=== PATIENT | female | born 1960 ===

== ENCOUNTER 2020-09-17 11:15 | Inpatient (IN) | payer OTHER ==
[~2020-09-17] VITALS: Ht 160 cm; Wt 85.7 kg
[~2020-09-17 11:15] MED LIST: IBUPROFEN800 MG PO; SEPTRA DS TABLE1 TAB PO
[2020-10-03] MEDS ORDERED: ALTACE5 MG PO (15:49)
[2020-10-03] MEDS ORDERED: METFORMIN HCL1000 M2 PO (15:49)
[2020-10-03] MEDS ORDERED: [UNRECOGNIZED DRUG - OTHER] (15:51)
[2020-10-03] MEDS ORDERED: LIPITOR40 MG PO (15:52)
[2020-10-03] MEDS ORDERED: BIOTIN1 M1 PO (15:52)
[2020-10-03] MEDS ORDERED: FENOFIBRATE150 MG PO (15:52)
[2020-10-03] MEDS ORDERED: D3 + K2 DOTS 11 EACH PO (15:53)
[2020-10-03] MEDS ORDERED: VITAMIN C100 MG PO (15:53)
[2020-10-03] MEDS ORDERED: DHEA 50 MG TAB1 EACH PO (15:53)
[2020-10-08] MEDS ORDERED: FENOFIBRATE145 MG (08:00)
[2020-10-08] MEDS ORDERED: BYDUREON B2 MG/0.85 (08:00)
== END 2020-10-11 18:20 | disposition home or self-care (01) | DRG 330 ==
LOC: O/R 10-08 06:00 → SURG 10-08 06:00 → SURH 10-08 12:00 → SURG 10-08 13:17
PROVIDERS: ADMIT Colon & Rectal Surgery; ATTEND Colon & Rectal Surgery
PROC: 0DBN0ZZ Excision of Sigmoid Colon, Open Approach (ICD-10-PCS; 2020-10-08)
PROC: 3E0F7SF Introduction of Other Gas into Respiratory Tract, Via Natural or Artificial Opening (ICD-10-PCS; 2020-10-08)
PROC: 4A033R1 Measurement of Arterial Saturation, Peripheral, Percutaneous Approach (ICD-10-PCS; 2020-10-08)
PROC: 4A12X4Z Monitoring of Cardiac Electrical Activity, External Approach (ICD-10-PCS; 2020-10-08)
PROC: 0DBP0ZZ Excision of Rectum, Open Approach (ICD-10-PCS; principal; 2020-10-08 13:45)
DX: K57.20 Diverticulitis of large intestine with perforation and abscess without bleeding (principal); K92.1 Melena; E11.9 Type 2 diabetes mellitus without complications; I10 Essential (primary) hypertension; G47.33 Obstructive sleep apnea (adult) (pediatric); E66.9 Obesity, unspecified; R10.9 Unspecified abdominal pain; R19.4 Change in bowel habit; Z20.822 Contact with and (suspected) exposure to COVID-19